=== PATIENT | female | born 1940 | race Caucasian/White ===

== ENCOUNTER 2021-10-31 08:24 | Outpatient (CLI) | payer MEDICARE, OTHER, SELFPAY ==
--- NOTE | ~2021-10-31 | CT_ITS ---
EXAMINATION: CT abdomen pelvis w con INDICATION: Abdominal pain TECHNIQUE: Computed tomographic images of the abdomen and pelvis were obtained after the administrati on of 100 cc of Omnipaque 350 intravenous contrast. The dose-length product (DLP) was 1066.62 mGy-cm. Automated exposure control and iterative reconstruction technique were employed. COMPARISON: None available FINDINGS: The lung bases are clear. The heart size is normal. Biopsy change is noted in the lower lef t breast. The gallbladder is surgically absent. There is mild enlargement of the common bile duct and central intrahepatic ducts which is likely due to post cholecystectomy state. There is a 5 mm cystic lesion in the body of the pancreas without definite communication with the main pancreatic duct. The liver, spleen, and adrenal glands are normal. The kidneys are unremarkable. No pathologically enlarg ed abdominal or pelvic lymph nodes are identified. There is calcified atherosclerosis of the aorta an d many of the other arteries. There is no free intraperitoneal gas or evidence of bowel obstruction. A moderate volume of colonic stool is present. There is severe lumbar spondylosis at L4-5. IMPRESSION: 1. No CT correlate for the patient's symptoms. 2. 5 mm cystic lesion in the body of the pancreas. The differential diagnosis includes pseudocyst, in traductal papillary mucinous neoplasm (IPMN), mucinous cystic neoplasm (MCN), and the less common ser ous cystadenoma and neuroendocrine tumor. Correlate for history of pancreatitis. Follow-up pancreas protocol CT or MRI without and with contrast is recommended two years. Reviewed, dictated and finalized at location A. RATING MACHINE TENDER IMPRESSION: 1. No CT correlate for the patient's symptoms. 2. 5 mm cystic lesion in the body of the pancreas. The differential diagnosis i ncludes pseudocyst, intraductal papillary mucinous neoplasm (IPMN), mucinous cy stic neoplasm (MCN), and the less common serous cystadenoma and neuroendocrine tumor. Correlate for history of pancreatitis. Follow-up pancreas protocol CT or MRI without and with contrast is recommended two years.
[2021-10-31 08:57] LABS: Estimated Glomerular Filt Rate > 60
== END 2021-10-31 08:25 | disposition home or self-care (01) ==
LOC: ANHIMG 08:28
PROVIDERS: PCP Internal Medicine; Visit Provider Internal Medicine Gastroenterology
DX: R10.9 Unspecified abdominal pain (principal); R74.8 Abnormal levels of other serum enzymes; K86.9 Disease of pancreas, unspecified
CPT/HCPCS: 74177; Q9967

== ENCOUNTER 2022-05-06 10:00 | Outpatient (RCR) | payer MEDICARE, OTHER, SELFPAY ==
--- NOTE | 2022-04-08 10:04 | PTOPEVAL ---
PHYSICAL THERAPY INITIAL EVALUATION Thank you for referring Cherly Myrick to [facility].? The patient is scheduled to be seen for therapy? 1x/week for 4 weeks. Please review, sign, date and return this plan of care MARY. I agree with and certify that the following plan of care is medically necessary. Referring Physician Date Attending Provider: Edith Doshi PA-C *PT Outpatient Evaluation Start: 04/08/22 Evaluation Information Diagnosis neck pain Onset chronic Subjective Information Pt states she has a long Query Text:As Reported By Patient/ history of neck pain. She Family states she has had multiple neck and back surgeries over the years. She reports a C4-C5 fusion in 1988. She states 2 years ago she had a fall which has increased her pain and decreased her function since. She also states she had a L rotator cuff tear that also causes her pain. Pt states her neck also feels so tight to where it is hard to move. She declines headaches. Pain Assessment Self Report Pain Assessment Neck Reported Pain Level 2 Pain Frequency Chronic,Intermittent Lowest Pain Intensity 2 Greatest Pain Intensity 8 Cervical ROM Cervical Flexion (0-60) 45 active Cervical Extension (0-70) 42 active Cervical Lateral Flexion Right (0-50) 20 active Cervical Lateral Flexion Right (0-50) 40 passive Cervical Lateral Flexion Left (0-50) 22 active Cervical Lateral Flexion Left (0-50) 40 passive Cervical Rotation Right (0-90) 50 active Cervical Rotation Right (0-90) 60 passive Cervical Rotation Left (0-90) 50 active Cervical Rotation Left (0-90) 60 passive Cervical ROM 75% of Normal Upper Extremity Range of Motion Gross Upper Extremity Range of Motion jose shoulder flexion active ~120 jose shoulder flexion passive ~150 jose shoulder abduction active ~100 jose shoulder abduction passive ~150 jose shoulder functional ext rot T2 jose shoulder functional int rot T12 Upper Extremity Muscle Strength Testing Gross Upper Extremity Strength Comments jose shoulder flexion 4-/5 jose shoulder abduction 3+/5 jose shoulder medial/lateral rotation 4/5, 4/5 jose elbow flexion 4/5
--- NOTE | 2022-05-06 10:38 | PTOPDC ---
Evaluation Information Assessment Status Discharge Diagnosis neck pain Subjective Information Pt states over all her neck is feeling much better and she believes therapy is helping. She reports good compliance with her HEP. She states she feels like her head moves with much more ease and does not tighten up on her like it used to. Pt reports 85% improvement in overall improvement. Pt still continues report a pain of 7/10 with vacuuming, and this pain decreases with rest. Reported Pain Level Pain Score 0: Self Report Assessment PT Clinical Summary Cheryl presents to therapy today for her progress report following 4 visits of skilled therapy services to treat her diagnosis of chronic neck pain. Today she reports no pain at rest and only pain when vacumming. She demonstrates improved active and passive cervical ROM this date compared to her initial visit. She also demonstates improved shoulder strength as well as imiproved postural awareness. She has met or progressed towards all of her therapy goals at this time. Skilled physical therapy services are no longer indicated at this time, therefore pt will be discharged. She was educated to continue her HEP upon discharge and to follow up with her referring provider if new symptoms occur. Plan of Care PT Services Indicated No Treatment Frequency and to be d/c'ed Duration
== END 2022-05-06 15:51 | disposition home or self-care (01) ==
LOC: ANHHIPT 10:00
PROVIDERS: PCP Internal Medicine; Visit Provider Physician Assistant Medical
DX: M54.2 Cervicalgia (principal)
CPT/HCPCS: 97110; 97140; 97161

== ENCOUNTER 2023-02-14 15:00 | Outpatient (RCR) | payer MEDICARE, OTHER, SELFPAY ==
--- NOTE | 2022-12-17 09:45 | PTOPEVAL1 ---
Assessment and note entered by Ara Carye, PT Evaluation Information Assessment Status Evaluation Diagnosis Pain in Right shoulder Therapy diagnosis Cervicalgia Onset September 2022 Subjective Information Was putting away decorations and lifted a box overhead is when pain started. Had a steroid shot in September that helped but the pain has returned. 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 Went to her doctor, recieved a steroid shot and this helped for a time but the pain has returned. X-rays of the cervical spine show significnat deficits along with well healed cervical fusion of C5-6. Evaluation of shoulder shows active ROM within normal limits without pain. Pt does show increased pain with cervical motion of right lateral flexion, right rotation, and extension. Pt also demo's multiple postural alignment issues as well as multiple tight postural muscles. Pt will thus benefit from physical therapy to address deficits, reduce pain, and return to prior pain free level of function. Plan of Care Interventions Electrical Stimulation,Hot Pack/Cold Pack,Manual Therapy,Neuro Re-education,Patient/Caregiver Educati,Therapeutic Activities,Therapeutic Exercise PT Services Indicated Yes Treatment Frequency and 2x weekly x 8 weeks Duration These treatments will address the objective and functional deficits as defined above. The patient will be advanced safely and appropriately in order for the patient to progress towards his/her prior level of function. Additional exercises will be introduced and as well as a comprehensive home exercise program upon discharge, if needed, ?to ensure carryover of functional gains achieved in the clinic. This treatment plan has been reviewed and agreement upon by the patient.
--- NOTE | 2023-01-15 15:29 | PTOPPROG ---
Assessment and note entered by Ara Carey, PT Assessment Status Progress Report Diagnosis Pain in Right shoulder Onset September 2022 Subjective Information Pt reports feeling 75% improved overall States can move neck now where before couldn't turn right. Pain in right shoulder dull and achy at times depending on what is doing States upper part of the neck is still tight at certain times, during driving at times. Assessment PT Clinical Summary Pt has attended therapy consistently for her neck and shoulder pain. Pt reports feeling 75% improved overall specifically with turning her head to the right. States right shoulder pain is more achy now and is no longer sharp in nature. Cont to demo decreased cervical ROM overall however is equal bilaterally and painfree as well as pt has prior history of cervical fusion. Pt will benefit from continued therapy to continue improvements and return to her pain-free PLOF. Plan of Care Interventions Electrical Stimulation,Hot Pack/Cold Pack,Manual Therapy,Neuro Re-education,Patient/Caregiver Educati,Therapeutic Activities,Therapeutic Exercise,Ultrasound Other Interventions Ultrasound shoulder only, not cervical PT Services Indicated Yes Treatment Frequency and cont POC 2x weekly x 4 weeks Duration These treatments will address the objective and functional deficits as defined above. The patient will be advanced safely and appropriately in order for the patient to progress towards his/her prior level of function. Additional exercises will be introduced and as well as a comprehensive home exercise program upon discharge, if needed, ?to ensure carryover of functional gains achieved in the clinic. This treatment plan has been reviewed and agreement upon by the patient.
--- NOTE | 2023-02-14 15:11 | PTOPDC ---
Assessment and note entered by Ara Carey, PT Assessment Status Discharge Diagnosis Pain in Right shoulder Onset September 2022 Subjective Information Pt reports feeling In the ' pertcent improved overall Pain in right shoulder dull and achy at times depending on what is doing - resolved States upper part of the neck is still tight at certain times, during driving at times. - much improve Reports hsa been able to apply postures while driving Reported Pain Level Pain Score 1,0: Self Report Assessment PT Clinical Summary Pt reports feeling at least 90% improved overall in her neck and shoulder pain. Reports highest shoulder pain is 2/10 and neck is 3/10 when she is really active and driving long distances. Her cervical ROM is WNL for her as she has had a previous cervical fusion. She feels confident in her knowledge of her home program to continue improving her posture and maintain her progress. Thus patient is being discharged for completion of therapy plan of care.
== END 2023-02-14 15:42 | disposition home or self-care (01) ==
LOC: ANHHIPT 15:00
PROVIDERS: PCP Family Medicine; Visit Provider Nurse Practitioner Family
DX: M25.511 Pain in right shoulder (principal)
CPT/HCPCS: 97012; 97014; 97110; 97140; 97162; G0283

== ENCOUNTER 2023-07-03 15:26 | Outpatient (CLI) | payer MEDICARE, OTHER, SELFPAY ==
--- NOTE | ~2023-07-03 | CT_ITS ---
EXAMINATION: CT brain wo con DATE: 07/03/2023 15:50 INDICATION: Fall with pressure at the vertex and along the sides of the head TECHNIQUE: Computed tomography (CT) of the head was performed without intravenous contrast. Sagittal and coronal reconstructions were performed. The mA was adjusted according to patient size. Iterative reconstruction technique was employed. The dose-length product was 605.33 mGy-cm. COMPARISON: None FINDINGS: No fracture. No acute intracranial hemorrhage, acute infarction or abnormal extra axial fluid collect ion. There is mild scattered white matter hypoattenuation consistent with chronic small vessel ischem ic disease. Symmetric prominence of the sulci consistent with mild age-appropriate diffuse cerebral v olume loss. Ventricles are normal and symmetric. No mass/mass effect. Intracranial calcified cerebra l atherosclerosis is noted. Changes of bilateral intraocular lens replacement. The orbits, paranasal sinuses and mastoid air cells are normal. IMPRESSION: 1. Normal aging brain. No fracture or acute intracranial process. Reviewed, dictated and finalized at location A.
== END 2023-07-03 15:27 | disposition home or self-care (01) ==
LOC: ANHIMG 15:28
PROVIDERS: PCP Family Medicine; Visit Provider Family Medicine
DX: S09.90XA Unspecified injury of head, initial encounter (principal); W19.XXXA Unspecified fall, initial encounter
CPT/HCPCS: 70450

== ENCOUNTER 2023-07-08 13:27 | Outpatient (CLI) | payer MEDICARE, OTHER, SELFPAY ==
--- NOTE | ~2023-07-08 | XR_ITS ---
XR lumbar spine min 4V DATE: 07/08/2023 13:48 INDICATION: Low back pain. No known injury. TECHNIQUE: Standing AP, lateral, flexion and extension lateral views COMPARISON: January 02, 2023 lumbar spine FINDINGS: There is diffuse osteopenia. There is minimal levoscoliosis of the lumbar spine. There is multilevel degenerative disc disease, most severe at L4-5 with prominent loss of interspace height, degenerative spurring and eburnation. Moderate degenerative disc disease at L1-2 and L2-3, mild degenerative disc disease at L3-4 and L5-S1 . There is degenerative change at the apophyseal joints of the lower lumbar area. No fracture or bone destruction or spondylolisthesis. The lumbar pedicles are intact. The sacroiliac joints appear normal. Status post cholecystectomy. IMPRESSION: Multilevel degenerative disc disease, most prominent at L4-5 Osteopenia Reviewed, dictated and finalized at location L.
== END 2023-07-08 13:28 | disposition home or self-care (01) ==
LOC: ANHIMG 13:31
PROVIDERS: PCP Family Medicine; Visit Provider Neurological Surgery
DX: M54.50 Low back pain, unspecified (principal); M51.36 Other intervertebral disc degeneration, lumbar region; M85.89 Other specified disorders of bone density and structure, multiple sites
CPT/HCPCS: 72110

== ENCOUNTER 2023-08-14 15:00 | Outpatient (RCR) | payer MEDICARE, OTHER, SELFPAY ==
--- NOTE | 2023-06-17 13:17 | OPREHPOC ---
Outpatient Therapy Plan of Care This is a Multidisciplinary Plan of Care that may contain components documented by all disciplines (PT, OT, and ST.) PT Goal 1 Goal [place] with HEP Target Visit 4 PT Problem 2 PT Problem #2 Pain PT Goal 1 Goal Report no pain greater that 2/10 with lifting activity PT Problem 3 PT Problem #3 Impaired Strength PT Goal 1 Goal Improve jose hip flexion strength to 4+/5 to improve foot clearance Target Visit 8 PT Goal 2 Goal Improve jose hip abduction to 4/5 to improve lateral stability of pelvis with gait and functional lifting Target Visit 8 PT Problem 4 PT Problem #4 Impaired Gait PT Goal 1 Goal Patient will ambulate with even stride length bilaterally Target Visit 8
--- NOTE | 2023-06-17 13:18 | PTOPEVAL1 ---
Assessment and note entered by Barry Raya, PT Evaluation Information Assessment Status Evaluation Diagnosis Low back pain, radiculopathy, leg weakness Onset 10/09/22 Subjective Information Reports that she is getting pain with bending and coming upright. Pain is short lived but intense. Walking does not bother her. Feels weak in her left leg. Right leg overall feels okay. She had a fall labor day weekend but denies any director long term care injury. Reported Pain Level Pain Score 2: Self Report Assessment PT Clinical Summary Patient showing significant gait deviation with trunk lean and lacking L terminal stance phase. She is showing limited L hip mobility and difficulty with lumbar disassociation. Will benefit from skilled therapy to address these deficits. Plan of Care Interventions Gait Training,Hot Pack/Cold Pack,Manual Therapy, Neuro Re-education,Patient/Caregiver Education, Therapeutic Activities,Therapeutic Exercise PT Services Indicated Yes Treatment Frequency and 2x/week for 6 weeks Duration These treatments will address the objective and functional deficits as defined above. The patient will be advanced safely and appropriately in order for the patient to progress towards his/her prior level of function. Additional exercises will be introduced and as well as a comprehensive home exercise program upon discharge, if needed, ?to ensure carryover of functional gains achieved in the clinic. This treatment plan has been reviewed and agreement upon by the patient.
--- NOTE | 2023-07-11 13:24 | PCPTNOTE ---
The patient treatment was not able to be completed on 07/09/23 due to staffing shortage. Will plan to continue treatment per plan of care.
--- NOTE | 2023-07-17 16:46 | PTOPPROG ---
Assessment and note entered by Ara Carey, PT Assessment Status Progress Report Diagnosis Low back pain, radiculopathy, leg weakness Onset 10/09/22 Subjective Information Reports still feeling weak in left leg. Pain is improved since last visit. Had a fall 06/28/23 and hit her head, did not have to stay at the hospital overnight. Pain with bending over to wash her hair then straightening up still hurting but is a little less, and is still short lived. Feels that her walking has gone down since this last fall. Is curious about a cane for her balance . Reports also has an appointment with neurosurgery tomorrow related to her prior back surgery self-perceived improvement:25-30% Assessment PT Clinical Summary Pt presents with continued back pain but improved left hip pain overall, somewhat improved gait . Cont to demo decreased terminal left hip extension in gait and left hip dissociation from lumbar spine. Demo's no changes in strength of hips but reports less pain at highest and lowest ratings. Today was educated in approrpiate DME and cane selection for improved ambulation and balance to decrease fall risk. Will benefit from continued therapy to continue focus on strengthening and balance for overall improved function Plan of Care Interventions Gait Training,Hot Pack/Cold Pack,Manual Therapy, Neuro Re-education,Patient/Caregiver Educati, Therapeutic Activities,Therapeutic Exercise PT Services Indicated Yes Treatment Frequency and 1-2x weekly x 4 weeks Duration These treatments will address the objective and functional deficits as defined above. The patient will be advanced safely and appropriately in order for the patient to progress towards his/her prior level of function. Additional exercises will be introduced and as well as a comprehensive home exercise program upon discharge, if needed, ?to ensure carryover of functional gains achieved in the clinic. This treatment plan has been reviewed and agreement upon by the patient.
--- NOTE | 2023-08-29 09:59 | PCPTNOTE ---
Called patient and rescheduled reevaluation from 08/21/23 to 09/04/23 secondary to staffing shortages.
--- NOTE | 2023-09-15 12:29 | PCPTNOTE ---
This treatment is being continued on visit number [id number]. Please see documentation on both accounts to view progress. Completed interventions, outcomes, and problems have been marked as Inactive to facilitate the copying of the Care plan routine for recurring accounts.
== END 2023-09-12 16:17 | disposition still patient (30) ==
LOC: ANHHIPT 15:00
PROVIDERS: PCP Family Medicine; Visit Provider Neurological Surgery
DX: M54.50 Low back pain, unspecified (principal)
CPT/HCPCS: 97014; 97110; 97112; 97116; 97140; 97161; 97530; 97750; G0283

== ENCOUNTER 2023-10-01 12:30 | Outpatient (RCR) | payer MEDICARE, OTHER, SELFPAY ==
--- NOTE | 2023-09-15 12:31 | PCPTNOTE ---
The treatment documented on this account is a continuation of the treatment documented on visit number [id number]. Please see documentation on both accounts to view progress. The Plan of Care has been transitioned and updated within the new V#. I have addressed and agree with the discipline specific Problems, Interventions, and Goals for the current certification period. Completed interventions, outcomes, and problems have been marked as Inactive to facilitate the copying of the Care plan routine for recurring accounts.
--- NOTE | 2023-10-01 13:15 | PTOPDC ---
Assessment and note entered by Ara Carey, PT Assessment Status Discharge Diagnosis Low back pain, radiculopathy, leg weakness Onset 10/09/22 Subjective Information Feels her back is much better and leg has strengthened as well. Is doing well, hasn't fallen recently. Reports has her cane but hasn't had to use it. Had a consult with neurosurgery about her prior back surgery. Took x-rays and didn't appear to be surgical. Self-perceived improvement: 85-90%, would like to have more strength. Hasn't been able to do her exercises recently due to sickness. Reported Pain Level Pain Score 0: Self Report Assessment PT Clinical Summary Pt initially was able to attend therapy consistently but most recently was not able secondary to illness. She has her updated home exercises, reports feels her legs are stronger, no longer has pain with activities, and has not had to use an AD for ambulation. Pt has met all her therapy goals with exception of only partially mt hip flexion goal. However her gait is functional with appropriate hip flexion without difficulty. She has been educated on her strengthening program to continue improvement as well as when to return to therapy. Thus patient is being discharged from [facility] services at this time.
== END 2023-10-01 13:40 | disposition home or self-care (01) ==
LOC: ANHHIPT 12:30
PROVIDERS: PCP Family Medicine; Visit Provider Neurological Surgery
DX: M54.50 Low back pain, unspecified (principal)
CPT/HCPCS: 97110; 97750

== ENCOUNTER 2024-01-12 07:33 | Outpatient (CLI) | payer MEDICARE, OTHER, SELFPAY ==
--- NOTE | ~2024-01-12 | MR_ITS ---
EXAMINATION: MR MRCP wo/w con/w 3D wo ind DATE: 01/12/2024 08:59 INDICATION: Other specified diseases of pancreas. Cyst of pancreas. TECHNIQUE: Magnetic resonance imaging (MRI) of the abdomen was performed without and with 13 mL Multi Eddie intravenous contrast. Sequences included coronal T2-weighted FS FSE, coronal T2-weighted FSE, a xial T1-weighted LAVA, coronal FS FIESTA, axial dual-echo T1-weighted SPGR, coronal lava-FLEX, sagitt al T2-weighted FSE, axial T2-weighted FSE, and axial DWI. Thick-slab T2-weighted FSE images were obta ined for magnetic resonance cholangiopancreatography (MRCP). Maximum intensity projection 3-D reconst ructions of the volumetric data were created by the technologist. Postcontrast sequences included cor onal LAVA-flex and time course of axial T1-weighted LAVA. COMPARISON: CT abdomen and pelvis 10/31/2021 FINDINGS: ABDOMEN MRI: There is a 5 mm cyst in the liver. The gallbladder is absent. The spleen is normal. The pancreatic duct is normal in caliber. There are multiple cystic lesions of the pancreas measuring up to 9 mm. Some of the lesions communicate with the main pancreatic duct. The adrenal glands and left k idney are normal. There is a 10 mm cyst in right kidney. There are no dilated loops of bowel. There a re no pathologically enlarged lymph nodes. There is no free intraperitoneal fluid. ABDOMEN MRCP: The common duct is normal and measures 6 mm. No choledocholithiasis. IMPRESSION: 1. Cystic lesions of the pancreas measuring up to 9 mm, likely benign. No further evaluation is recom mended given the patient's age. Reviewed, dictated and finalized at location A. IMPRESSION: 1. Cystic lesions of the pancreas measuring up to 9 mm, likely benign. No furth er evaluation is recommended given the patient's age.
== END 2024-01-12 07:34 | disposition home or self-care (01) ==
PROVIDERS: PCP Physician Assistant Medical; Visit Provider Nurse Practitioner Family
DX: K86.2 Cyst of pancreas (principal); K86.89 Other specified diseases of pancreas
CPT/HCPCS: 74183; 76376; A9577

== ENCOUNTER 2024-07-20 10:40 | Outpatient (CLI) | payer MEDICARE, OTHER, SELFPAY ==
--- NOTE | ~2024-07-20 | US_ITS ---
EXAMINATION: US renal BI DATE: 07/20/2024 11:29 INDICATION: Right renal cyst TECHNIQUE: Multiple ultrasound grayscale images of the kidneys were obtained. COMPARISON: None. FINDINGS: The right kidney measures 9.5 x 5.1 x 4.8 cm. The left kidney measures 9.2 x 4.6 x 4.3 cm. The kidney s demonstrate normal echogenicity. 1 cm anechoic exophytic cyst at the lower pole of the right kidney . There is no hydronephrosis in either kidney. No stones identified. The bladder is normal bilateral ureteral jets visualized on color Doppler. IMPRESSION: 1. 1 cm right renal cyst. Otherwise normal kidneys without hydronephrosis. Reviewed, dictated and finalized at location B. 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
== END 2024-07-20 10:41 | disposition home or self-care (01) ==
PROVIDERS: PCP Physician Assistant Medical; Visit Provider Physician Assistant Medical
DX: N28.1 Cyst of kidney, acquired (principal)
CPT/HCPCS: 76775

== ENCOUNTER 2025-05-11 12:30 | Outpatient (RCR) | payer MEDICARE, OTHER, SELFPAY ==
--- NOTE | 2025-02-23 15:59 | PTOPEVAL1 ---
Assessment and note entered by Ara Carey, PT Evaluation Information Assessment Status Evaluation Diagnosis left knee pain ICD-10 Condition Codes (PT) Pain in left knee M25.562,Weakness R53.1 Other ICD-10 Condition Codes ( history of falls PT) Subjective Information Pt report had a fall a few years ago and has just been able to address it. States x-ray looks fine. Reports Doctor states could be related to arthritis or to her back. After sitting, takes a half a dozen steps to get going. Feels like in the thigh. If does stairs feels more discomfort in the knee but tries not to do stairs as much. Pt reports has hand rail x 1 on right side descending and a wall on the opposite into basement. Has always had problem with stairs since the replacemnet. Currently does step-to pattern for steps Has a ramp in the garage to get into home. and one step in front door with no hand rails. Is able to shop an hour or so but then getting to the car to lift the leg is difficult. Reported Pain Level Pain Score 0: Self Report Additional Pain Score Comments Crossing LLE over right will have pain in lateral knee that goes up to hip and gluteals Crossing RLE over left will eventually hurt too along the outside of the leg Assessment PT Clinical Summary Pt presents with left knee pain after a fall a few years ago. Left knee TKR ~ 18-19 years ago, saw ortho and images show replacement is WNL. Testing today shows quads and hamstring weakness, gluteus medius weakness, tight iliotibial band, abnormal sit<>stand kinematics, and mild/moderate patellar tracking deficit. Pt will benefit from physical therapy in order to address these deficits and improve her pain and function to meet her goals. Plan of Care Interventions Electrical Stimulation,Gait Training,Hot Pack/Cold Pack,Manual Therapy,Neuro Re-education,Patient/ Caregiver Education,Therapeutic Activities, Therapeutic Exercise,Self-Care/Home Management, Other Other Interventions Taping, bracing PT Services Indicated Yes Treatment Frequency and 1-2x weekly x 15 visits Duration These treatments will address the objective and functional deficits as defined above. The patient will be advanced safely and appropriately in order for the patient to progress towards his/her prior level of function. Additional exercises will be introduced and as well as a comprehensive home exercise program upon discharge, if needed, ?to ensure carryover of functional gains achieved in the clinic. This treatment plan has been reviewed and agreement upon by the patient.
--- NOTE | 2025-02-23 15:59 | OPREHPOC ---
Outpatient Therapy Plan of Care This is a Multidisciplinary Plan of Care that may contain components documented by all disciplines (PT, OT, and ST.) PT Problem 1 PT Problem #1 Knowledge Deficit PT Goal 1 Goal / Goal Update Pt will be independent in HEP Pt will verbalize understanding of diagnosis and prognosis Target Visit 10 PT Problem 2 PT Problem #2 Pain PT Goal 1 Goal / Goal Update Pt will report greatest pain level at 3/10 or less to improve ADLs and activities Target Visit 10 PT Goal 2 Goal / Goal Update Pt will report resolution of pain to return to PLOF Target Visit 15 PT Problem 3 PT Problem #3 Impaired Strength PT Goal 1 Goal / Goal Update Pt will demonstrate L quads and hamstring strength equal to RLE Target Visit 10 PT Goal 2 Goal / Goal Update Pt will show strength of LLE hip abduction 4/5 or greater for improved knee stability Target Visit 15
--- NOTE | 2025-04-04 12:39 | PTOPPROG ---
Assessment and note entered by Ara Carey, PT Evaluation Information Assessment Status Progress Diagnosis left knee pain ICD-10 Condition Codes (PT) Pain in left knee M25.562,Weakness R53.1 Other ICD-10 Condition Codes ( history of falls PT) Subjective Information Is better able to get in to car, is more comfortable and stable walking now. After sitting long periods, only has to stand a few seconds before getting going. No feeling of weakness in the thigh. Stairs hasn't tried these but once or twice so isn 't sure how she feels on that. Feels95% improved overall Assessment PT Clinical Summary Pt has attended therapy consistently for her knee pain and difficulty with walking. She reports feeling 95% improved overall, shows improvement in her strength and her 5x sit to stand testing. However she reports has not been as consistent as she would like to be with her home exercises. She also continues to show weakness in the LLE including gluteus medius and quads, as well as tightness in L iliotibial band. She will benefit from continued therapy at a decreased frequency for the remainder of her visits in order to focus on the higher level activities to meet all goals. Plan of Care Interventions Electrical Stimulation,Gait Training,Hot Pack/Cold Pack,Manual Therapy,Neuro Re-education,Patient/ Caregiver Education,Therapeutic Activities, Therapeutic Exercise,Self-Care/Home Management, Other Other Interventions Taping, bracing PT Services Indicated Yes Treatment Frequency and 1 weekly x 4 visits Duration These treatments will address the objective and functional deficits as defined above. The patient will be advanced safely and appropriately in order for the patient to progress towards his/her prior level of function. Additional exercises will be introduced and as well as a comprehensive home exercise program upon discharge, if needed, ?to ensure carryover of functional gains achieved in the clinic. This treatment plan has been reviewed and agreement upon by the patient.
--- NOTE | 2025-04-04 12:40 | OPREHPOC ---
Outpatient Therapy Plan of Care This is a Multidisciplinary Plan of Care that may contain components documented by all disciplines (PT, OT, and ST.) PT Problem 1 PT Problem #1 Knowledge Deficit PT Goal 1 Goal / Goal Update Pt will be independent in HEP Pt will verbalize understanding of diagnosis and prognosis Target Visit 10 Progress Partially Met PT Problem 2 PT Problem #2 Pain PT Goal 1 Goal / Goal Update Pt will report greatest pain level at 3/10 or less to improve ADLs and activities Target Visit 10 Progress Met PT Goal 2 Goal / Goal Update Pt will report resolution of pain to return to PLOF Target Visit 15 PT Problem 3 PT Problem #3 Impaired Strength PT Goal 1 Goal / Goal Update Pt will demonstrate L quads and hamstring strength equal to RLE Target Visit 10 Progress Partially Met PT Goal 2 Goal / Goal Update Pt will show strength of LLE hip abduction 4/5 or greater for improved knee stability Target Visit 15 Progress Not Met PT Problem 4 PT Problem #4 Impaired Flexibility PT Goal 1 Goal / Goal Update Pt will demonstrate appropriate iliotibial band lenght Target Visit 15
--- NOTE | 2025-05-11 13:17 | PTOPDC ---
Assessment and note entered by Ara Carey, PT Evaluation Information Assessment Status Discharge Diagnosis left knee pain ICD-10 Condition Codes (PT) Pain in left knee M25.562,Weakness R53.1 Other ICD-10 Condition Codes ( history of falls PT) Subjective Information Pt reports she has been doing her ball and her band exercises but not all the exercises. Could tell though walking on rock or grass was so much better. Still doesn't does stairs but doesn't need to. Knee agitates when does a lot of exercise, but doesn't hurt. Ankle is bothering her more than anything right now Reported Pain Level Pain Score 0: Self Report Assessment PT Clinical Summary Pt has attended therapy consistently for her left knee pain. She reports great improvement in this with her pain ranging from 0-2/10 at the worst. She reports feeling more able to ambulate on grass and gravel without issue as well. Recently her ankle/foot has been more of a problem for her than her knee has. She has met all her therapy goals for her knee and her HEP has been updated. Thus she is being discharged from therapy for completion of POC. Plan of Care PT Services Indicated No
== END 2025-05-11 13:56 | disposition home or self-care (01) ==
LOC: ANHHIPT 12:30
PROVIDERS: PCP Physician Assistant Medical; Visit Provider Orthopaedic Surgery
DX: M25.562 Pain in left knee (principal); R53.1 Weakness
CPT/HCPCS: 97110; 97112; 97140; 97162; 97530; 97750